=== PATIENT | female | born 1940 | race Caucasian/White ===

== ENCOUNTER 2023-11-07 23:24 | Inpatient (IN) | payer MEDICARE, BC ==
[2023-11-07] MEDS ORDERED: Diltiazem 25 MG/5 ML SDV IVPUSH ONE (23:32)
[2023-11-07] MEDS ORDERED: Sodium Chloride 0.9% 10 ML Syringe FLUSH PRN (23:32)
[2023-11-07 23:38] LABS: BASOPHILS ABSOLUTE AUTO 0.03 K/uL (0.00-0.10); BASOPHILS PERCENT AUTO 0.4 % (0.1-1.3); EOSINOPHILS PERCENT AUTO 1.4 % (0.0-5.4); HEMATOCRIT 42.4 % (34.3-46.0); HEMOGLOBIN 14.2 g/dL (11.2-15.5); IMMATURE GRAN ABSOLUTE AUTO 0.02 K/uL (0.00-0.23); IMMATURE GRAN PERCENT AUTO 0.3 % (0.0-0.7); LYMPHOCYTES ABSOLUTE AUTO 3.29 K/uL (0.8-3.3); LYMPHOCYTES PERCENT AUTO 44.7 % (11.4-47.7); MEAN CORPUSCULAR HEMOGLOBIN 30.5 pg (31.6-35.5); MEAN CORPUSCULAR HGB CONC 33.5 g/dL (31.6-35.5); MONOCYTES ABSOLUTE AUTO 0.67 K/uL (0.20-0.90); MONOCYTES PERCENT AUTO 9.1 % (3.3-12.6); NEUTROPHILS ABSOLUTE AUTO 3.25 K/uL (1.0-7.6); NEUTROPHILS PERCENT AUTO 44.1 % (40.0-78.1); PLATELET COUNT,PLT 251 K/uL (130-375); RED BLOOD CELL COUNT 4.66 M/uL (3.77-5.24); WHITE BLOOD CELL COUNT,WBC 7.4 K/uL (3.2-11.0)
[2023-11-07] MEDS: Diltiazem 100 MG in Sodium Chloride 0.9% 100 ML IV SCH (23:54)
[2023-11-07 23:57] LABS: A/G RATIO 1.1 (1.2-2.2); ALANINE AMINOTRANSFERASE,ALT 63 U/L (12-78); ALBUMIN 3.9 g/dL (3.4-5.0); ALKALINE PHOSPHATASE 73 U/L (46-116); ASPARTATE AMNIOTRANSFERASE,AST 38 U/L (15-37); BILIRUBIN TOTAL 0.3 mg/dL (0.2-1.0); BLOOD UREA NITROGEN,BUN 16 mg/dL (7-18); CALCIUM 9.1 mg/dL (8.5-10.1); CARBON DIOXIDE,CO2 26 mmol/L (21-32); CHLORIDE,CL 97 mmol/L (100-108); CREATININE 1.3 mg/dL (0.6-1.0); ESTIMATED GFR 41 mL/min (>60); GLUCOSE RANDOM 121 mg/dL (74-106); MAGNESIUM 1.5 mg/dL (1.8-2.4); PHOSPHORUS 2.5 mg/dL (2.5-4.9); POTASSIUM,K 3.2 mmol/L (3.6-5.2); PROTEIN TOTAL,TP 7.6 g/dL (6.4-8.2); SODIUM,NA 136 mmol/L (140-148); TROPONIN I HIGH SENSITIVITY 4.6 pg/mL (<=60.3)
[2023-11-07 23:59] LABS: ANION GAP 16.2 mmol/L (5.0-14.0)
[2023-11-08] MEDS ORDERED: Sodium Chloride 0.9% 1,000 ML IV SCH (00:45)
[2023-11-08] MEDS ORDERED: Potassium Chloride 20 MEQ Tab.ER PO ONE ×3 (01:01→17:00)
[2023-11-08 01:24] LABS: INFLUENZA A NAA POSITIVE (NEGATIVE); INFLUENZA B NAA NEGATIVE (NEGATIVE); RESPIRATORY SYNCYTIAL VIR NAA NEGATIVE (NEGATIVE)
[2023-11-08] MEDS ORDERED: Polyethylene Glycol 3350 Powder 17 GM Packet PO PRN (01:26)
[2023-11-08] MEDS ORDERED: Acetaminophen 325 MG Tab PO PRN (01:26)
[2023-11-08] MEDS ORDERED: Enoxaparin 40 MG/0.4 ML Syringe SUBCUT SCH ×2 (01:26→01:45)
[2023-11-08] MEDS ORDERED: Sodium Chloride 0.9% 10 ML Syringe FLUSH PRN (01:26)
[2023-11-08] MEDS ORDERED: Ondansetron 4 MG/2 ML SDV IV PRN (01:26)
[2023-11-08 01:27] LABS: CORONAVIRUS COVID-19 NAA POSITIVE (NEGATIVE)
[2023-11-08] MEDS: Magnesium Oxide 400 MG Tab PO SCH ×3 (01:46→21:34)
[2023-11-08] MEDS: Magnesium Sulfate/Water 2 GM in Premix Bag 1 BAG IV SCH ×2 (01:46→08:05)
[2023-11-08] MEDS ORDERED: Diltiazem 25 MG/5 ML SDV ONE (02:06)
[2023-11-08] MEDS ORDERED: Diltiazem 25 MG/5 ML SDV IVPUSH ONE (02:10)
[2023-11-08] MEDS: Diltiazem 100 MG in Sodium Chloride 0.9% 100 ML IV SCH (05:33)
[2023-11-08 06:22] LABS: HEMATOCRIT 39.9 % (34.3-46.0); HEMOGLOBIN 13.5 g/dL (11.2-15.5); MEAN CORPUSCULAR HEMOGLOBIN 30.6 pg (31.6-35.5); MEAN CORPUSCULAR HGB CONC 33.8 g/dL (31.6-35.5); MEAN CORPUSCULAR VOLUME 90.5 fL (81.4-99.0); RED BLOOD CELL COUNT 4.41 M/uL (3.77-5.24); WHITE BLOOD CELL COUNT,WBC 4.5 K/uL (3.2-11.0)
[2023-11-08 06:23] LABS: CALCIUM 8.3 mg/dL (8.5-10.1); CREATININE 0.9 mg/dL (0.6-1.0); EST CRCL DRUG DOSING (CG) 47.67 mL/min; MAGNESIUM 2.3 mg/dL (1.8-2.4); POTASSIUM,K 3.3 mmol/L (3.6-5.2)
[2023-11-08 06:24] LABS: ANION GAP 9.3 mmol/L (5.0-14.0)
[2023-11-08] MEDS: atorvaSTATin 20 MG Tab PO SCH (08:11)
[2023-11-08] MEDS: Aspirin 81 MG Tab.EC PO SCH (08:12)
[2023-11-08] MEDS: Diltiazem IR 30 MG Tab PO SCH ×3 (11:15→21:35)
[2023-11-08] MEDS: Apixaban 5 MG Tab PO SCH (21:34)
[2023-11-09] MEDS: Diltiazem IR 30 MG Tab PO SCH (04:07)
[2023-11-09 05:19] LABS: CALCIUM 8.4 mg/dL (8.5-10.1); CREATININE 0.9 mg/dL (0.6-1.0); EST CRCL DRUG DOSING (CG) 47.67 mL/min; POTASSIUM,K 5.1 mmol/L (3.6-5.2)
[2023-11-09] MEDS: Magnesium Oxide 400 MG Tab PO SCH (08:34)
[2023-11-09] MEDS: atorvaSTATin 20 MG Tab PO SCH (08:34)
[2023-11-09] MEDS: Aspirin 81 MG Tab.EC PO SCH (08:34)
[2023-11-09] MEDS: Apixaban 5 MG Tab PO SCH (08:34)
[2023-11-09] MEDS ORDERED: Diltiazem 180 MG Cap.CD PO SCH (09:00)
== END 2023-11-09 14:20 | disposition home or self-care (01) | DRG 308 ==
LOC: JP.ED 23:24 → UNDOADMIN 11-08 01:33 → JP.ICU 11-08 01:33
PROVIDERS: ADMIT Hospitalist; ATTEND Hospitalist
DX: I48.91 Unspecified atrial fibrillation (principal); I10 Essential (primary) hypertension; I48.0 Paroxysmal atrial fibrillation; U07.1 COVID-19; E78.00 Pure hypercholesterolemia, unspecified; E83.42 Hypomagnesemia; E87.6 Hypokalemia; J10.1 Influenza due to other identified influenza virus with other respiratory manifestations; I11.9 Hypertensive heart disease without heart failure; Z88.0 Allergy status to penicillin; Z79.82 Long term (current) use of aspirin; Z79.899 Other long term (current) drug therapy; Z90.710 Acquired absence of both cervix and uterus
CPT/HCPCS: 0241U; 36415; 71045; 80048; 80053; 83735; 84100; 84443; 84484; 85025; 85027; 93005; 93306; 96374; 99285; A9270-GY; J1650; J3475; J3490; J7030

== ENCOUNTER 2023-11-11 17:38 | Inpatient (IN) | payer MEDICARE, BC ==
[2023-11-11] MEDS ORDERED: Diltiazem 25 MG/5 ML SDV IVPUSH ONE (18:03)
[2023-11-11 18:09] LABS: BASOPHILS ABSOLUTE AUTO 0.03 K/uL (0.00-0.10); BASOPHILS PERCENT AUTO 0.5 % (0.1-1.3); EOSINOPHILS ABSOLUTE AUTO 0.13 K/uL (0.00-0.40); EOSINOPHILS PERCENT AUTO 2.2 % (0.0-5.4); HEMATOCRIT 40.4 % (34.3-46.0); HEMOGLOBIN 13.6 g/dL (11.2-15.5); IMMATURE GRAN PERCENT AUTO 0.3 % (0.0-0.7); LYMPHOCYTES ABSOLUTE AUTO 3.07 K/uL (0.8-3.3); LYMPHOCYTES PERCENT AUTO 51.5 % (11.4-47.7); MEAN CORPUSCULAR HEMOGLOBIN 30.7 pg (31.6-35.5); MEAN CORPUSCULAR HGB CONC 33.7 g/dL (31.6-35.5); MEAN CORPUSCULAR VOLUME 91.2 fL (81.4-99.0); MONOCYTES ABSOLUTE AUTO 0.46 K/uL (0.20-0.90); MONOCYTES PERCENT AUTO 7.7 % (3.3-12.6); NEUTROPHILS ABSOLUTE AUTO 2.25 K/uL (1.0-7.6); NEUTROPHILS PERCENT AUTO 37.8 % (40.0-78.1); PLATELET COUNT,PLT 286 K/uL (130-375); RED BLOOD CELL COUNT 4.43 M/uL (3.77-5.24)
[2023-11-11 18:13] LABS: IMMATURE GRAN ABSOLUTE AUTO 0.02 K/uL (0.00-0.23)
[2023-11-11] MEDS ORDERED: Diltiazem 100 MG in Sodium Chloride 0.9% 100 ML IV SCH ×2 (18:15→22:14)
[2023-11-11 18:26] LABS: ANION GAP 11.4 mmol/L (5.0-14.0); BLOOD UREA NITROGEN,BUN 19 mg/dL (7-18); CALCIUM 9.2 mg/dL (8.5-10.1); CARBON DIOXIDE,CO2 26 mmol/L (21-32); CHLORIDE,CL 103 mmol/L (100-108); CREATININE 1.1 mg/dL (0.6-1.0); ESTIMATED GFR 50 mL/min (>60); GLUCOSE RANDOM 126 mg/dL (74-106); MAGNESIUM 1.7 mg/dL (1.8-2.4); PHOSPHORUS 2.9 mg/dL (2.5-4.9); POTASSIUM,K 3.8 mmol/L (3.6-5.2); SODIUM,NA 140 mmol/L (140-148); TROPONIN I HIGH SENSITIVITY < 4.0 pg/mL (<=60.3)
[2023-11-11 21:28] LABS: INFLUENZA A NAA POSITIVE (NEGATIVE); INFLUENZA B NAA NEGATIVE (NEGATIVE); RESPIRATORY SYNCYTIAL VIR NAA NEGATIVE (NEGATIVE)
[2023-11-11 21:31] LABS: CORONAVIRUS COVID-19 NAA POSITIVE (NEGATIVE)
[2023-11-11] MEDS ORDERED: Polyethylene Glycol 3350 Powder 17 GM Packet PO PRN (22:14)
[2023-11-11] MEDS ORDERED: Sodium Chloride 0.9% 10 ML Syringe FLUSH PRN (22:14)
[2023-11-11] MEDS ORDERED: Magnesium Sulfate/Water 2 GM in Premix Bag 1 BAG IV SCH (22:14)
[2023-11-11] MEDS ORDERED: Ondansetron 4 MG/2 ML SDV IV PRN (22:14)
[2023-11-11] MEDS ORDERED: Acetaminophen 325 MG Tab PO PRN (22:14)
[2023-11-11] MEDS: Magnesium Oxide 400 MG Tab PO SCH (23:54)
[2023-11-11] MEDS: Sotalol 80 MG Tab PO SCH (23:54)
[2023-11-11] MEDS: Apixaban 5 MG Tab PO SCH (23:54)
[2023-11-12 05:46] LABS: CALCIUM 8.8 mg/dL (8.5-10.1); EST CRCL DRUG DOSING (CG) 43.42 mL/min; MAGNESIUM 2.4 mg/dL (1.8-2.4); POTASSIUM,K 4.4 mmol/L (3.6-5.2)
[2023-11-12 06:13] LABS: ANION GAP 9.4 mmol/L (5.0-14.0)
[2023-11-12] MEDS: Sotalol 80 MG Tab PO SCH ×3 (08:19→20:15)
[2023-11-12] MEDS: Apixaban 5 MG Tab PO SCH ×3 (08:20→20:15)
[2023-11-12] MEDS: Aspirin 81 MG Tab.EC PO SCH (08:20)
[2023-11-12] MEDS: atorvaSTATin 20 MG Tab PO SCH (08:20)
[2023-11-12] MEDS: Magnesium Oxide 400 MG Tab PO SCH (08:20)
[2023-11-12] MEDS ORDERED: Diltiazem 120 MG Cap.CD PO SCH (10:15)
[2023-11-12] MEDS: Diltiazem IR 30 MG Tab PO SCH ×2 (13:06→19:28)
[2023-11-13] MEDS: Diltiazem IR 30 MG Tab PO SCH ×2 (01:59→08:16)
[2023-11-13] MEDS: Sotalol 80 MG Tab PO SCH ×2 (08:12→22:00)
[2023-11-13] MEDS: Aspirin 81 MG Tab.EC PO SCH (08:16)
[2023-11-13] MEDS: Apixaban 5 MG Tab PO SCH ×2 (08:16→22:03)
[2023-11-13] MEDS: atorvaSTATin 20 MG Tab PO SCH (08:16)
[2023-11-13] MEDS: Diltiazem 120 MG Cap.CD PO SCH (10:32)
[2023-11-14 06:21] LABS: ANION GAP 8.1 mmol/L (5.0-14.0); BLOOD UREA NITROGEN,BUN 20 mg/dL (7-18); CALCIUM 8.5 mg/dL (8.5-10.1); CARBON DIOXIDE,CO2 29 mmol/L (21-32); CHLORIDE,CL 105 mmol/L (100-108); EST CRCL DRUG DOSING (CG) 43.71 mL/min; ESTIMATED GFR 57 mL/min (>60); GLUCOSE RANDOM 97 mg/dL (74-106); POTASSIUM,K 4.2 mmol/L (3.6-5.2); SODIUM,NA 142 mmol/L (140-148)
[2023-11-14 06:33] LABS: C-REACTIVE PROTEIN < 0.50 mg/dL (<0.50)
[2023-11-14] MEDS: Diltiazem 120 MG Cap.CD PO SCH (08:02)
[2023-11-14] MEDS: Sotalol 80 MG Tab PO SCH ×2 (08:02→20:18)
[2023-11-14] MEDS: Apixaban 5 MG Tab PO SCH ×2 (08:02→20:18)
[2023-11-14] MEDS: atorvaSTATin 20 MG Tab PO SCH (08:03)
[2023-11-14] MEDS: Aspirin 81 MG Tab.EC PO SCH (08:03)
[2023-11-15] MEDS: Sotalol 80 MG Tab PO SCH (08:03)
[2023-11-15] MEDS: Apixaban 5 MG Tab PO SCH (08:03)
[2023-11-15] MEDS: Diltiazem 120 MG Cap.CD PO SCH (08:04)
[2023-11-15] MEDS: Aspirin 81 MG Tab.EC PO SCH (08:04)
[2023-11-15] MEDS: atorvaSTATin 20 MG Tab PO SCH (08:04)
[2023-11-15] MEDS ORDERED: Diltiazem 120 MG Cap.CD PO ONE (10:15)
[2023-11-16] MEDS ORDERED: Diltiazem 120 MG Cap.CD PO SCH (09:00)
[2023-11-16] MEDS ORDERED: Diltiazem 180 MG Cap.CD PO SCH (09:00)
== END 2023-11-15 15:35 | disposition home or self-care (01) | DRG 308 ==
LOC: JP.ED 17:38 → JP.ICU 20:09
PROVIDERS: ADMIT Hospitalist; ATTEND Internal Medicine
DX: I48.0 Paroxysmal atrial fibrillation (principal); U07.1 COVID-19; J10.1 Influenza due to other identified influenza virus with other respiratory manifestations; I48.91 Unspecified atrial fibrillation; I10 Essential (primary) hypertension; E83.42 Hypomagnesemia; M19.90 Unspecified osteoarthritis, unspecified site; E78.00 Pure hypercholesterolemia, unspecified; Z79.01 Long term (current) use of anticoagulants; Z79.82 Long term (current) use of aspirin; Z98.49 Cataract extraction status, unspecified eye; Z79.899 Other long term (current) drug therapy; Z90.49 Acquired absence of other specified parts of digestive tract; Z90.89 Acquired absence of other organs; Z88.0 Allergy status to penicillin; Z90.710 Acquired absence of both cervix and uterus
CPT/HCPCS: 0241U; 36415; 80048; 83605; 83735; 84100; 84484; 85025; 86140; 93005; 96365; 96366; 99285; 93010; 99222; 99232; 99238; A9270-GY; J3475; J3490